=== PATIENT | male | born 1960 | race Caucasian/White ===

== ENCOUNTER 2016-06-20 11:04 | Inpatient (IN) | payer OTHER ==
[2016-06-20 11:56] VITALS: BMI 22.7
--- NOTE | 2016-06-20 13:42 | HP ---
Admission [facility] Chief Complaint: REHAB TX FOR ALCOHOL DEPENDENCE Allergies/Adverse Reactions: Allergies Allergy/AdvReac Type Severity Reaction Status Date / Time No Known Allergies Allergy Verified 07/14/15 17:11 History of Present Illness: 55 Y/O MALE WITH A HX OF ALCOHOL DEPENDENCE SEEKING REHAB TX. PT COMPLETED DETOX AT [facility] AND DISCHARGED TODAY TO COME INTO REHAB HERE. Exam Limitations: No Limitations - Ebola screening Have you traveled outside of the country in the last 21 days: No Have you had contact with anyone from an Ebola affected area: No Have you been sick,other than usual withdrawal symptoms: No Do you have a fever: No - Review of Systems Constitutional: Changes in sleep (ON REMERON) EENT: reports: Blurred Vision (WEARS GLASSES-NOT WITH PATIENT.), Nose Congestion (HX NOSE FX--ON NASAL SPRAY), Dental Problems (BILATERAL DENTURES ON PATIENT.) Respiratory: reports: Shortness of Breath (HX COPD--MDI), Wheezing Cardiac: reports: Lightheadedness, Palpitations (ONE STENT; S/P ND 2004) GI: reports: Diarrhea, Nausea, Poor Appetite, Poor Fluid Intake, Abdominal cramping : reports: No Symptoms Reported Musculoskeletal: reports: Back Pain (CHRONIC LBP--S/P BACK SX TWICE), Muscle Pain Integumentary: reports: No Symptoms Reported Neuro: reports: Headache (HX MIGRAINES) Endocrine: reports: No Symptoms Reported Hematology: reports: Blood Clots (BOTH LEGS, LAST EPISODE IN 2013-ON PLAVIX AND ASPIRIN.) Psychiatric: reports: Orientated x3, Anxious, Depressed (ON MEDS) Other Systems: Reviewed and Negative Patient History - Patient Medical History Hx Asthma: Yes Hx Chronic Obstructive Pulmonary Disease (COPD): Yes (MDI) Hx Cancer: No Hx Cardiac Disorders: Yes (ND X 1 IN 2004--ONE STENT.) Hx Congestive Heart Failure: No Hx Hypertension: Yes (ON MED) Hx Hypercholesterolemia: Yes Hx Pacemaker: No HX Cerebrovascular Accident: No Hx Seizures: Yes Hx Dementia: No Hx Diabetes: No Hx Gastrointestinal Disorders: Yes (GERD) Hx Liver Disease: No Hx Genitourinary Disorders: No Hx Sexually Transmitted Disorders: No Hx Renal Disease (ESRD): No Hx Thyroid Disease: No Hx Human Immunodeficiency Virus (HIV): No (NEGATIVE HX) Hx Hepatitis C: No Hx Depression: Yes Hx Suicide Attempt: Yes (10 YEARS AGO, CUT WRIST;DENIES CURRENT IDEATIONS) Hx Bipolar Disorder: No Hx Schizophrenia: Yes - Patient Surgical History Past Surgical History: Yes Hx Neurologic Surgery: No Hx Cataract Extraction: No Hx Cardiac Surgery: Yes (2004 stent) Hx Lung Surgery: No Hx Breast Surgery: No Hx Breast Biopsy: No Hx Abdominal Surgery: No Hx Appendectomy: No Hx Cholecystectomy: Yes (gallbladder removed 2014) Hx Genitourinary Surgery: No Hx Orthopedic Surgery: Yes (right upper arm fracture 2013) Anesthesia Reaction: No - PPD History Previous Implant?: Yes Documented Results: Negative w/o proof Implanted On Prior [facility] Admission?: Yes Date: 07/16/15 PPD to be Administered?: No - Reproductive History Patient is a Female of Child Bearing Age (11 -55 yrs old): No (MALE) - Smoking Cessation Smoking history: Current every day smoker Have you smoked in the past 12 months: Yes Aproximately how many cigarettes per day: 20 Hx Chewing Tobacco Use: No Initiated information on smoking cessation: Yes 'Breaking Loose' booklet given: 06/20/16 - Substance & Tx. History Hx Alcohol Use: Yes (BEER) Substance Use Type: Alcohol Hx Substance Use Treatment: Yes ([facility]) - Substances Abused Alcohol Route: Oral Frequency: Daily Amount used: 1 TO 1 1/2 CASES BEER Age of first use: 13 Date of Last Use: 06/14/16 Family Disease History - Family Disease History Family Disease History: Diabetes: Father (), CA: Mother ( throat ca), Sister (lung ca) Admission Physical Exam [facility] - Vital Signs Vital Signs: Vital Signs - 24 hr 06/20/16 11:48 Temperature 96.6 F L Pulse Rate 101 H Respiratory 20 Rate Blood Pressure 121/68 - Physical General Appearance: Yes: No Apparent Distress, Irritable, Anxious HEENTM: Yes: EOMI, Normocephalic, BAHMAN, Pharynx Normal, Nasal Congestion, Rhinorrhea, Other (SX SCAR ON NASAL BRIDGE. HX NASAL SX DUE TO FRACTURES.) Respiratory: Yes: Chest Non-Tender, Lungs Clear, Normal Breath Sounds, No Respiratory Distress Neck: Yes: Supple, Trachea in good position Breast: Yes: Breast Exam Deferred Cardiology: Yes: Regular Rhythm, Regular Rate, S1, S2, Tachycardia Abdominal: Yes: Normal Bowel Sounds, Non Tender, Flat, Soft Genitourinary: Yes: Other Back: Yes: Within Normal Limits Musculoskeletal: Yes: full range of Motion, Gait Steady Extremities: Yes: Normal Capillary Refill, Normal Range of Motion Neurological: Yes: fuel operator II-XII NML intact, Fully Oriented, Alert, Motor Strength 5/5 Integumentary: Yes: Dry, Warm Lymphatic: Yes: Within Normal Limits - Diagnostic (1) Nicotine dependence Current Visit: Yes Status: Acute Qualifiers: Nicotine product type: cigarettes Substance use status: in withdrawal Qualified Code(s): F17.213 - Nicotine dependence, cigarettes, with withdrawal (2) GERD (gastroesophageal reflux disease) Current Visit: Yes Status: Chronic Qualifiers: Esophagitis presence: without esophagitis Qualified Code(s): K21.9 - Gastro-esophageal reflux disease without esophagitis (3) Hypertension Current Visit: Yes Status: Chronic Qualifiers: Hypertension type: essential hypertension (4) Seizure Current Visit: Yes Status: Chronic (5) Alcohol dependence with uncomplicated withdrawal Current Visit: Yes Status: Chronic (6) Asthma Current Visit: Yes Status: Chronic Qualifiers: Asthma severity: mild intermittent Asthma complication type: uncomplicated Qualified Code(s): J45.20 - Mild intermittent asthma, uncomplicated (7) COPD (chronic obstructive pulmonary disease) Current Visit: Yes Status: Chronic Qualifiers: COPD type: emphysema Cleared for Admission [facility] - Detox or Rehab Claeared for Rehab Admission: Yes [facility] Breath Alcohol Content Breath Alcohol Content: 0 Urine Drug Screen - Results Drug Screen Negative: No Urine Drug Screen Results: BAR-Barbiturates, BZO-Benzodiazepines, TCA-Tricyclic Antidepress
[2016-06-20] MEDS ORDERED: guaiFENesin/D-METHORPHAN HB 10 ML UNIT-DOSE CUPS PO PRN (14:16)
[2016-06-20] MEDS ORDERED: LOPERAMIDE HCL 2 MG CAPSULE PO PRN (14:16)
[2016-06-20] MEDS ORDERED: MAGNESIUM CITRATE 300 ML BOTTLE PO PRN (14:16)
[2016-06-20] MEDS ORDERED: MAGNESIUM HYDROX 2400MG/30ML ORAL SUSPENSION 30 ML CUP PO PRN (14:16)
[2016-06-20] MEDS ORDERED: P-EPHED 60MG/TRIPROLIDI 2.5MG TABLET PO PRN (14:16)
[2016-06-20] MEDS ORDERED: MENTHOL/PHENOL 1 EACH UD MM PRN (14:16)
[2016-06-20] MEDS ORDERED: MAG HYDROX/AL HYDROX/SIMETH 30 ML UNIT-DOSE CUP PO PRN (14:16)
[2016-06-20] MEDS ORDERED: METHOCARBAMOL 750 MG TAB PO PRN (15:58)
[2016-06-20] MEDS ORDERED: LOSARTAN POTASSIUM PO SCH (16:00)
[2016-06-20 17:32] LABS: MCH 30.2 pg (25.7-33.7); MEAN CELL VOLUME 91.4 fl (80-96); MEAN PLT VOLUME 8.1 fl (7.5-11.1); PLATELET COUNT 206 K/MM3 (134-434); RDW 15.3 % (11.9-15.9); WHITE BLOOD COUNT 8.6 K/mm3 (4.0-10.0)
[2016-06-20 17:57] LABS: ALBUMIN 3.5 g/dl (3.4-5.0); ALK PHOS 79 U/L (45-117); ANION GAP 10 (8-16); BILIRUBIN,TOTAL 0.2 mg/dL (0.2-1.0); CALCIUM 8.8 mg/dL (8.5-10.1); CO2 25 mmol/L (21-32); COCKROFT - GAULT 93.78; CREATININE 0.9 mg/dL (0.7-1.3); GLUCOSE,RANDOM 88 mg/dL (74-106); SGOT/AST 19 U/L (15-37); SGPT/ALT 26 U/L (12-78); TOT PROT 7.1 g/dl (6.4-8.2)
[2016-06-20] MEDS: IBUPROFEN 400 MG TABLET (FP) PO PRN (18:07)
[2016-06-20] MEDS: DIGOXIN 0.125 MG TABLET (FP) PO SCH (19:46)
[2016-06-20] MEDS: CLOPIDOGREL BISULFATE 75 MG TABLET (FP) PO SCH (19:46)
[2016-06-20] MEDS: PANTOPRAZOLE 40 MG TABLET (FP) PO SCH (19:46)
[2016-06-20] MEDS: MIRTAZAPINE 15 MG TABLET (FP) PO SCH (21:29)
[2016-06-20] MEDS: THIAMINE HCL 100 MG TABLET (FP) PO SCH (21:29)
[2016-06-20] MEDS: QUEtiapine FUMARATE 50 MG TABLET PO SCH (21:29)
[2016-06-20] MEDS: DIVALPROEX SODIUM 500 MG TABLET E.C. PO SCH (21:30)
[2016-06-20] MEDS: ATORVASTATIN CALCIUM PO SCH (21:30)
[2016-06-20] MEDS: METOPROLOL TARTRATE 25 MG TABLET (FP) PO SCH (21:30)
[2016-06-20] MEDS: GABAPENTIN PO SCH (21:30)
[2016-06-20] MEDS ORDERED: PROPRANOLOL HCL PO SCH (22:00)
[2016-06-20 23:06] LABS: URINE APPEARANCE CLEAR; URINE BILIRUBIN NEGATIVE (NEGATIVE); URINE BLOOD NEGATIVE (NEGATIVE); URINE COLOR YELLOW; URINE GLUCOSE (UA) NEGATIVE (NEGATIVE); URINE KETONE NEGATIVE (NEGATIVE); URINE LEUK ESTERASE NEGATIVE (NEGATIVE); URINE NITRITE NEGATIVE (NEGATIVE); URINE PROTEIN NEGATIVE (NEGATIVE); URINE UROBILINOGEN NEGATIVE E.U./dl (0.2-1.0)
[2016-06-21] MEDS: GABAPENTIN PO SCH ×3 (06:31→21:33)
[2016-06-21] MEDS: QUEtiapine FUMARATE 50 MG TABLET PO SCH ×2 (10:00→21:33)
[2016-06-21] MEDS: CLOPIDOGREL BISULFATE 75 MG TABLET (FP) PO SCH (10:00)
[2016-06-21] MEDS: DIVALPROEX SODIUM 500 MG TABLET E.C. PO SCH ×2 (10:00→21:33)
[2016-06-21] MEDS: METOPROLOL TARTRATE 25 MG TABLET (FP) PO SCH ×2 (10:00→21:33)
[2016-06-21] MEDS: ASPIRIN COATED 81 MG TABLET.EC PO SCH (10:00)
[2016-06-21] MEDS: PRENATAL VITAMINS W/ FOLIC ACID TABLET (FP) PO SCH (10:00)
[2016-06-21] MEDS: PANTOPRAZOLE 40 MG TABLET (FP) PO SCH (10:00)
[2016-06-21] MEDS: LOSARTAN POTASSIUM 50 MG TABLET (FP) PO SCH (10:51)
[2016-06-21] MEDS: DIGOXIN 0.125 MG TABLET (FP) PO SCH (10:52)
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
[2016-06-21] MEDS: IBUPROFEN 400 MG TABLET (FP) PO PRN (15:36)
[2016-06-21] MEDS: ATORVASTATIN CALCIUM PO SCH (21:33)
[2016-06-21] MEDS: THIAMINE HCL 100 MG TABLET (FP) PO SCH (21:33)
[2016-06-21] MEDS: MIRTAZAPINE 15 MG TABLET (FP) PO SCH (21:33)
[2016-06-21] MEDS: METHOCARBAMOL 750 MG TABLET PO PRN (21:35)
[2016-06-21] MEDS: LIDOCAINE 5% TOPICAL PATCH TP SCH (22:16)
[2016-06-22] MEDS: GABAPENTIN PO SCH ×3 (06:20→21:20)
[2016-06-22] MEDS: LOSARTAN POTASSIUM 50 MG TABLET (FP) PO SCH (10:01)
[2016-06-22] MEDS: DIGOXIN 0.125 MG TABLET (FP) PO SCH (10:01)
[2016-06-22] MEDS: CLOPIDOGREL BISULFATE 75 MG TABLET (FP) PO SCH (10:02)
[2016-06-22] MEDS: ASPIRIN COATED 81 MG TABLET.EC PO SCH (10:02)
[2016-06-22] MEDS: PRENATAL VITAMINS W/ FOLIC ACID TABLET (FP) PO SCH (10:02)
[2016-06-22] MEDS: METOPROLOL TARTRATE 25 MG TABLET (FP) PO SCH ×2 (10:02→21:20)
[2016-06-22] MEDS: LIDOCAINE 5% TOPICAL PATCH TP SCH (10:03)
[2016-06-22] MEDS: PANTOPRAZOLE 40 MG TABLET (FP) PO SCH (10:03)
[2016-06-22] MEDS: DIVALPROEX SODIUM 500 MG TABLET E.C. PO SCH ×2 (10:03→21:20)
[2016-06-22] MEDS: QUEtiapine FUMARATE 50 MG TABLET PO SCH ×2 (10:03→21:20)
--- NOTE | 2016-06-22 11:49 | EKG ---
Test Reason : Blood Pressure : / mmHG Vent. Rate : 074 BPM Atrial Rate : 074 BPM P-R Int : 164 ms QRS Dur : 116 ms QT Int : 404 ms P-R-T Axes : 066 065 003 degrees QTc Int : 448 ms NORMAL SINUS RHYTHM NORMAL ECG NO PREVIOUS ECGS AVAILABLE Confirmed by GLENDY BULL MD ([id number]) on 06/22/2016 11:49:19 AM Referred By: Confirmed By:GLENDY BULL MD
[2016-06-22] MEDS: IBUPROFEN 400 MG TABLET (FP) PO PRN (16:12)
[2016-06-22] MEDS: MIRTAZAPINE 15 MG TABLET (FP) PO SCH (21:20)
[2016-06-22] MEDS: ATORVASTATIN CALCIUM PO SCH (21:20)
[2016-06-22] MEDS: THIAMINE HCL 100 MG TABLET (FP) PO SCH (21:20)
[2016-06-22] MEDS: SUMAtriptan SUCCINATE 25 MG TABLET PO PRN (21:22)
[2016-06-22] MEDS: METHOCARBAMOL 750 MG TABLET PO PRN (21:24)
[2016-06-22] MEDS: diphenhydrAMINE HCL 50 MG CAPSULE PO PRN (22:02)
[2016-06-23] MEDS: GABAPENTIN PO SCH ×3 (06:09→21:31)
[2016-06-23] MEDS: DIVALPROEX SODIUM 500 MG TABLET E.C. PO SCH ×2 (09:51→21:31)
[2016-06-23] MEDS: PRENATAL VITAMINS W/ FOLIC ACID TABLET (FP) PO SCH (09:52)
[2016-06-23] MEDS: PANTOPRAZOLE 40 MG TABLET (FP) PO SCH (09:52)
[2016-06-23] MEDS: CLOPIDOGREL BISULFATE 75 MG TABLET (FP) PO SCH (09:52)
[2016-06-23] MEDS: QUEtiapine FUMARATE 50 MG TABLET PO SCH ×2 (09:52→21:30)
[2016-06-23] MEDS: LOSARTAN POTASSIUM 50 MG TABLET (FP) PO SCH (09:52)
[2016-06-23] MEDS: METOPROLOL TARTRATE 25 MG TABLET (FP) PO SCH ×2 (09:52→21:31)
[2016-06-23] MEDS: DIGOXIN 0.125 MG TABLET (FP) PO SCH (09:53)
[2016-06-23] MEDS: ASPIRIN COATED 81 MG TABLET.EC PO SCH (10:19)
[2016-06-23] MEDS: LIDOCAINE 5% TOPICAL PATCH TP SCH (10:20)
[2016-06-23] MEDS: METHOCARBAMOL 750 MG TABLET PO PRN ×2 (12:34→21:32)
[2016-06-23] MEDS: SUMAtriptan SUCCINATE 25 MG TABLET PO PRN ×2 (12:37→21:31)
[2016-06-23] MEDS ORDERED: METHOCARBAMOL 750 MG TABLET PO SCH (14:00)
[2016-06-23] MEDS: THIAMINE HCL 100 MG TABLET (FP) PO SCH (21:30)
[2016-06-23] MEDS: MIRTAZAPINE 15 MG TABLET (FP) PO SCH (21:30)
[2016-06-23] MEDS: ATORVASTATIN CALCIUM PO SCH (21:32)
[2016-06-24] MEDS: GABAPENTIN PO SCH ×3 (06:41→21:32)
[2016-06-24] MEDS: METHOCARBAMOL 750 MG TABLET PO PRN ×2 (08:38→21:33)
[2016-06-24] MEDS: CLOPIDOGREL BISULFATE 75 MG TABLET (FP) PO SCH (09:51)
[2016-06-24] MEDS: QUEtiapine FUMARATE 50 MG TABLET PO SCH ×2 (09:51→21:32)
[2016-06-24] MEDS: DIGOXIN 0.125 MG TABLET (FP) PO SCH (09:51)
[2016-06-24] MEDS: METOPROLOL TARTRATE 25 MG TABLET (FP) PO SCH ×2 (09:52→21:32)
[2016-06-24] MEDS: LOSARTAN POTASSIUM 50 MG TABLET (FP) PO SCH (09:52)
[2016-06-24] MEDS: PRENATAL VITAMINS W/ FOLIC ACID TABLET (FP) PO SCH (09:52)
[2016-06-24] MEDS: DIVALPROEX SODIUM 500 MG TABLET E.C. PO SCH ×2 (09:52→21:32)
[2016-06-24] MEDS: LIDOCAINE 5% TOPICAL PATCH TP SCH (09:52)
[2016-06-24] MEDS: PANTOPRAZOLE 40 MG TABLET (FP) PO SCH (09:52)
[2016-06-24] MEDS: ASPIRIN COATED 81 MG TABLET.EC PO SCH (09:52)
[2016-06-24] MEDS: ACETAMINOPHEN 325 MG TABLET (FP) PO PRN (14:32)
[2016-06-24] MEDS: THIAMINE HCL 100 MG TABLET (FP) PO SCH (21:32)
[2016-06-24] MEDS: MIRTAZAPINE 15 MG TABLET (FP) PO SCH (21:32)
[2016-06-24] MEDS: ATORVASTATIN CALCIUM PO SCH (21:32)
[2016-06-24] MEDS: diphenhydrAMINE HCL 50 MG CAPSULE PO PRN (21:33)
[2016-06-25] MEDS: GABAPENTIN PO SCH ×2 (06:44→14:19)
[2016-06-25] MEDS: METHOCARBAMOL 750 MG TABLET PO PRN ×2 (06:46→14:19)
[2016-06-25] MEDS: DIGOXIN 0.125 MG TABLET (FP) PO SCH (09:55)
[2016-06-25] MEDS: PRENATAL VITAMINS W/ FOLIC ACID TABLET (FP) PO SCH (09:56)
[2016-06-25] MEDS: ASPIRIN COATED 81 MG TABLET.EC PO SCH (09:56)
[2016-06-25] MEDS: LOSARTAN POTASSIUM 50 MG TABLET (FP) PO SCH (09:56)
[2016-06-25] MEDS: CLOPIDOGREL BISULFATE 75 MG TABLET (FP) PO SCH (09:56)
[2016-06-25] MEDS: PANTOPRAZOLE 40 MG TABLET (FP) PO SCH (09:56)
[2016-06-25] MEDS: QUEtiapine FUMARATE 50 MG TABLET PO SCH ×2 (09:57→21:35)
[2016-06-25] MEDS: LIDOCAINE 5% TOPICAL PATCH TP SCH (09:57)
[2016-06-25] MEDS: DIVALPROEX SODIUM 500 MG TABLET E.C. PO SCH ×2 (09:57→21:34)
[2016-06-25] MEDS: METOPROLOL TARTRATE 25 MG TABLET (FP) PO SCH ×2 (09:58→21:35)
[2016-06-25] MEDS: IBUPROFEN 400 MG TABLET (FP) PO PRN (09:59)
[2016-06-25] MEDS: SUMAtriptan SUCCINATE 25 MG TABLET PO PRN (14:17)
[2016-06-25] MEDS: ATORVASTATIN CALCIUM PO SCH (21:34)
[2016-06-25] MEDS: GABAPENTIN 300 MG CAPSULE (FP) PO SCH (21:35)
[2016-06-25] MEDS: MIRTAZAPINE 15 MG TABLET (FP) PO SCH (21:35)
[2016-06-25] MEDS: diphenhydrAMINE HCL 50 MG CAPSULE PO PRN (21:36)
[2016-06-25] MEDS: THIAMINE HCL 100 MG TABLET (FP) PO SCH (21:37)
[2016-06-26] MEDS: METHOCARBAMOL 750 MG TABLET PO PRN ×3 (06:04→21:26)
[2016-06-26] MEDS: GABAPENTIN 300 MG CAPSULE (FP) PO SCH ×3 (06:05→21:23)
[2016-06-26] MEDS: CLOPIDOGREL BISULFATE 75 MG TABLET (FP) PO SCH (10:19)
[2016-06-26] MEDS: QUEtiapine FUMARATE 50 MG TABLET PO SCH ×2 (10:19→21:24)
[2016-06-26] MEDS: PANTOPRAZOLE 40 MG TABLET (FP) PO SCH (10:19)
[2016-06-26] MEDS: PRENATAL VITAMINS W/ FOLIC ACID TABLET (FP) PO SCH (10:19)
[2016-06-26] MEDS: ASPIRIN COATED 81 MG TABLET.EC PO SCH (10:19)
[2016-06-26] MEDS: DIVALPROEX SODIUM 500 MG TABLET E.C. PO SCH ×2 (10:19→21:23)
[2016-06-26] MEDS: LOSARTAN POTASSIUM 50 MG TABLET (FP) PO SCH (10:19)
[2016-06-26] MEDS: LIDOCAINE 5% TOPICAL PATCH TP SCH (10:20)
[2016-06-26] MEDS: DIGOXIN 0.125 MG TABLET (FP) PO SCH (10:20)
[2016-06-26] MEDS: IBUPROFEN 400 MG TABLET (FP) PO PRN (10:23)
[2016-06-26] MEDS: METOPROLOL TARTRATE 25 MG TABLET (FP) PO SCH ×2 (11:16→21:24)
[2016-06-26] MEDS: ACETAMINOPHEN 325 MG TABLET (FP) PO PRN (20:33)
[2016-06-26] MEDS: MIRTAZAPINE 15 MG TABLET (FP) PO SCH (21:23)
[2016-06-26] MEDS: THIAMINE HCL 100 MG TABLET (FP) PO SCH (21:24)
[2016-06-26] MEDS: ATORVASTATIN CALCIUM PO SCH (21:25)
[2016-06-26] MEDS: SUMAtriptan SUCCINATE 25 MG TABLET PO PRN (21:26)
[2016-06-26] MEDS: diphenhydrAMINE HCL 50 MG CAPSULE PO PRN (21:27)
[2016-06-27] MEDS: METHOCARBAMOL 750 MG TABLET PO PRN ×3 (06:08→21:51)
[2016-06-27] MEDS: GABAPENTIN 300 MG CAPSULE (FP) PO SCH ×3 (06:08→21:49)
[2016-06-27] MEDS: PANTOPRAZOLE 40 MG TABLET (FP) PO SCH (10:06)
[2016-06-27] MEDS: PRENATAL VITAMINS W/ FOLIC ACID TABLET (FP) PO SCH (10:07)
[2016-06-27] MEDS: DIVALPROEX SODIUM 500 MG TABLET E.C. PO SCH ×2 (10:07→21:48)
[2016-06-27] MEDS: DIGOXIN 0.125 MG TABLET (FP) PO SCH (10:07)
[2016-06-27] MEDS: LOSARTAN POTASSIUM 50 MG TABLET (FP) PO SCH (10:07)
[2016-06-27] MEDS: ASPIRIN COATED 81 MG TABLET.EC PO SCH (10:07)
[2016-06-27] MEDS: CLOPIDOGREL BISULFATE 75 MG TABLET (FP) PO SCH (10:07)
[2016-06-27] MEDS: METOPROLOL TARTRATE 25 MG TABLET (FP) PO SCH ×2 (10:07→21:50)
[2016-06-27] MEDS: LIDOCAINE 5% TOPICAL PATCH TP SCH (10:08)
[2016-06-27] MEDS: QUEtiapine FUMARATE 50 MG TABLET PO SCH ×2 (10:08→21:49)
[2016-06-27] MEDS: SUMAtriptan SUCCINATE 25 MG TABLET PO PRN (21:48)
[2016-06-27] MEDS: ATORVASTATIN CALCIUM PO SCH (21:49)
[2016-06-27] MEDS: MIRTAZAPINE 15 MG TABLET (FP) PO SCH (21:50)
[2016-06-27] MEDS: THIAMINE HCL 100 MG TABLET (FP) PO SCH (21:50)
[2016-06-27] MEDS: diphenhydrAMINE HCL 50 MG CAPSULE PO PRN (21:52)
[2016-06-28] MEDS: GABAPENTIN 300 MG CAPSULE (FP) PO SCH ×3 (06:20→21:09)
[2016-06-28] MEDS: METHOCARBAMOL 750 MG TABLET PO PRN ×3 (06:21→21:09)
[2016-06-28] MEDS: CLOPIDOGREL BISULFATE 75 MG TABLET (FP) PO SCH (10:11)
[2016-06-28] MEDS: DIGOXIN 0.125 MG TABLET (FP) PO SCH (10:11)
[2016-06-28] MEDS: PANTOPRAZOLE 40 MG TABLET (FP) PO SCH (10:11)
[2016-06-28] MEDS: QUEtiapine FUMARATE 50 MG TABLET PO SCH ×2 (10:11→21:09)
[2016-06-28] MEDS: ASPIRIN COATED 81 MG TABLET.EC PO SCH (10:11)
[2016-06-28] MEDS: PRENATAL VITAMINS W/ FOLIC ACID TABLET (FP) PO SCH (10:12)
[2016-06-28] MEDS: LIDOCAINE 5% TOPICAL PATCH TP SCH (10:12)
[2016-06-28] MEDS: DIVALPROEX SODIUM 500 MG TABLET E.C. PO SCH ×2 (10:12→21:09)
[2016-06-28] MEDS: LOSARTAN POTASSIUM 50 MG TABLET (FP) PO SCH (10:12)
[2016-06-28] MEDS: METOPROLOL TARTRATE 25 MG TABLET (FP) PO SCH ×2 (10:12→21:09)
[2016-06-28] MEDS: IBUPROFEN 400 MG TABLET (FP) PO PRN (10:14)
[2016-06-28] MEDS: SUMAtriptan SUCCINATE 25 MG TABLET PO PRN ×2 (14:16→21:09)
[2016-06-28] MEDS: COLLOIDAL OATMEAL 1 BAR EACH TP PRN (17:46)
[2016-06-28] MEDS: ATORVASTATIN CALCIUM PO SCH (21:09)
[2016-06-28] MEDS: THIAMINE HCL 100 MG TABLET (FP) PO SCH (21:09)
[2016-06-28] MEDS: MIRTAZAPINE 15 MG TABLET (FP) PO SCH (21:09)
[2016-06-29] MEDS: GABAPENTIN 300 MG CAPSULE (FP) PO SCH ×3 (06:03→21:10)
[2016-06-29] MEDS: METHOCARBAMOL 750 MG TABLET PO PRN ×3 (06:03→21:13)
[2016-06-29] MEDS: QUEtiapine FUMARATE 50 MG TABLET PO SCH ×2 (09:52→21:10)
[2016-06-29] MEDS: ASPIRIN COATED 81 MG TABLET.EC PO SCH (09:53)
[2016-06-29] MEDS: DIVALPROEX SODIUM 500 MG TABLET E.C. PO SCH ×2 (09:53→21:09)
[2016-06-29] MEDS: CLOPIDOGREL BISULFATE 75 MG TABLET (FP) PO SCH (09:53)
[2016-06-29] MEDS: METOPROLOL TARTRATE 25 MG TABLET (FP) PO SCH ×2 (09:53→21:09)
[2016-06-29] MEDS: DIGOXIN 0.125 MG TABLET (FP) PO SCH (09:53)
[2016-06-29] MEDS: LOSARTAN POTASSIUM 50 MG TABLET (FP) PO SCH (09:54)
[2016-06-29] MEDS: LIDOCAINE 5% TOPICAL PATCH TP SCH (09:54)
[2016-06-29] MEDS: PANTOPRAZOLE 40 MG TABLET (FP) PO SCH (09:54)
[2016-06-29] MEDS: PRENATAL VITAMINS W/ FOLIC ACID TABLET (FP) PO SCH (09:54)
[2016-06-29] MEDS: ACETAMINOPHEN 325 MG TABLET (FP) PO PRN (09:56)
[2016-06-29] MEDS: SUMAtriptan SUCCINATE 25 MG TABLET PO PRN ×2 (14:07→21:12)
[2016-06-29] MEDS: SODIUM CHLORIDE NASAL SPRAY 44 ML BOTTLE NS PRN (21:08)
[2016-06-29] MEDS: ATORVASTATIN CALCIUM PO SCH (21:09)
[2016-06-29] MEDS: MIRTAZAPINE 15 MG TABLET (FP) PO SCH (21:10)
[2016-06-29] MEDS: THIAMINE HCL 100 MG TABLET (FP) PO SCH (21:11)
[2016-06-29] MEDS: diphenhydrAMINE HCL 50 MG CAPSULE PO PRN (21:12)
[2016-06-30] MEDS: GABAPENTIN 300 MG CAPSULE (FP) PO SCH ×3 (06:17→21:11)
[2016-06-30] MEDS: METHOCARBAMOL 750 MG TABLET PO PRN ×3 (06:17→21:12)
[2016-06-30] MEDS: DIVALPROEX SODIUM 500 MG TABLET E.C. PO SCH ×2 (09:46→21:10)
[2016-06-30] MEDS: CLOPIDOGREL BISULFATE 75 MG TABLET (FP) PO SCH (09:46)
[2016-06-30] MEDS: DIGOXIN 0.125 MG TABLET (FP) PO SCH (09:46)
[2016-06-30] MEDS: ASPIRIN COATED 81 MG TABLET.EC PO SCH (09:46)
[2016-06-30] MEDS: LOSARTAN POTASSIUM 50 MG TABLET (FP) PO SCH (09:46)
[2016-06-30] MEDS: QUEtiapine FUMARATE 50 MG TABLET PO SCH ×2 (09:47→21:11)
[2016-06-30] MEDS: PRENATAL VITAMINS W/ FOLIC ACID TABLET (FP) PO SCH (09:47)
[2016-06-30] MEDS: METOPROLOL TARTRATE 25 MG TABLET (FP) PO SCH ×2 (09:47→21:11)
[2016-06-30] MEDS: LIDOCAINE 5% TOPICAL PATCH TP SCH (09:47)
[2016-06-30] MEDS: ACETAMINOPHEN 325 MG TABLET (FP) PO PRN (09:49)
[2016-06-30] MEDS: PANTOPRAZOLE 40 MG TABLET (FP) PO SCH (09:49)
[2016-06-30] MEDS: SUMAtriptan SUCCINATE 25 MG TABLET PO PRN ×2 (13:11→21:11)
[2016-06-30] MEDS: MIRTAZAPINE 15 MG TABLET (FP) PO SCH (21:11)
[2016-06-30] MEDS: ATORVASTATIN CALCIUM PO SCH (21:11)
[2016-06-30] MEDS: SODIUM CHLORIDE NASAL SPRAY 44 ML BOTTLE NS PRN (21:11)
[2016-06-30] MEDS: THIAMINE HCL 100 MG TABLET (FP) PO SCH (21:12)
[2016-06-30] MEDS: ALBUTEROL SO4 6.7 GM HFA INHALER IH PRN (21:13)
[2016-07-01] MEDS: GABAPENTIN 300 MG CAPSULE (FP) PO SCH ×3 (06:09→21:16)
[2016-07-01] MEDS: METHOCARBAMOL 750 MG TABLET PO PRN ×3 (06:10→21:21)
[2016-07-01] MEDS: SODIUM CHLORIDE NASAL SPRAY 44 ML BOTTLE NS PRN ×2 (06:11→21:18)
[2016-07-01] MEDS: LIDOCAINE 5% TOPICAL PATCH TP SCH (09:44)
[2016-07-01] MEDS: ACETAMINOPHEN 325 MG TABLET (FP) PO PRN (09:46)
[2016-07-01] MEDS: CLOPIDOGREL BISULFATE 75 MG TABLET (FP) PO SCH (09:48)
[2016-07-01] MEDS: hydrOXYzine PAMOATE 25 MG CAPSULE (FP) PO PRN (09:48)
[2016-07-01] MEDS: LOSARTAN POTASSIUM 50 MG TABLET (FP) PO SCH (09:48)
[2016-07-01] MEDS: ASPIRIN COATED 81 MG TABLET.EC PO SCH (09:48)
[2016-07-01] MEDS: DIVALPROEX SODIUM 500 MG TABLET E.C. PO SCH ×2 (09:48→21:16)
[2016-07-01] MEDS: PRENATAL VITAMINS W/ FOLIC ACID TABLET (FP) PO SCH (09:48)
[2016-07-01] MEDS: PANTOPRAZOLE 40 MG TABLET (FP) PO SCH (09:49)
[2016-07-01] MEDS: METOPROLOL TARTRATE 25 MG TABLET (FP) PO SCH ×2 (09:49→21:16)
[2016-07-01] MEDS: DIGOXIN 0.125 MG TABLET (FP) PO SCH (10:26)
[2016-07-01] MEDS: QUEtiapine FUMARATE 50 MG TABLET PO SCH ×2 (10:27→21:15)
[2016-07-01] MEDS: CEPHALEXIN MONOHYDRATE 500 MG CAPSULE (UD) PO SCH ×2 (12:04→17:52)
[2016-07-01] MEDS: SUMAtriptan SUCCINATE 25 MG TABLET PO PRN ×2 (14:05→21:21)
--- NOTE | 2016-07-01 17:06 | PN ---
S Progress Note Note: Patient is referred for pain to the left hip area. On exam, there is an area of redness which is tender and firm to touch. There is a scar right above the area of redness which is also tender to touch. As per pt, the scar from a previous surgery. He denies any recent injury. He denies fever or chills A/P left hip cellulitis Keflex 500mg p.o every 6hrs for 7 days.
[2016-07-01] MEDS: ATORVASTATIN CALCIUM PO SCH (21:16)
[2016-07-01] MEDS: MIRTAZAPINE 15 MG TABLET (FP) PO SCH (21:16)
[2016-07-01] MEDS: THIAMINE HCL 100 MG TABLET (FP) PO SCH (21:17)
[2016-07-01] MEDS: IBUPROFEN 400 MG TABLET (FP) PO PRN (21:25)
[2016-07-02] MEDS: CEPHALEXIN MONOHYDRATE 500 MG CAPSULE (UD) PO SCH ×5 (00:12→23:38)
[2016-07-02] MEDS: GABAPENTIN 300 MG CAPSULE (FP) PO SCH ×3 (06:18→21:13)
[2016-07-02] MEDS: METHOCARBAMOL 750 MG TABLET PO PRN ×3 (06:19→21:17)
[2016-07-02] MEDS: LOSARTAN POTASSIUM 50 MG TABLET (FP) PO SCH (09:52)
[2016-07-02] MEDS: DIGOXIN 0.125 MG TABLET (FP) PO SCH (09:52)
[2016-07-02] MEDS: DIVALPROEX SODIUM 500 MG TABLET E.C. PO SCH ×2 (09:52→21:13)
[2016-07-02] MEDS: QUEtiapine FUMARATE 50 MG TABLET PO SCH ×2 (09:53→21:12)
[2016-07-02] MEDS: CLOPIDOGREL BISULFATE 75 MG TABLET (FP) PO SCH (09:53)
[2016-07-02] MEDS: PRENATAL VITAMINS W/ FOLIC ACID TABLET (FP) PO SCH (09:53)
[2016-07-02] MEDS: SODIUM CHLORIDE NASAL SPRAY 44 ML BOTTLE NS PRN ×2 (09:53→21:13)
[2016-07-02] MEDS: hydrOXYzine PAMOATE 25 MG CAPSULE (FP) PO PRN (09:53)
[2016-07-02] MEDS: PANTOPRAZOLE 40 MG TABLET (FP) PO SCH (09:54)
[2016-07-02] MEDS: ACETAMINOPHEN 325 MG TABLET (FP) PO PRN ×2 (09:54→21:14)
[2016-07-02] MEDS: ALBUTEROL SO4 6.7 GM HFA INHALER IH PRN ×2 (09:54→21:14)
[2016-07-02] MEDS: ASPIRIN COATED 81 MG TABLET.EC PO SCH (09:54)
[2016-07-02] MEDS: LIDOCAINE 5% TOPICAL PATCH TP SCH (09:55)
[2016-07-02] MEDS: METOPROLOL TARTRATE 25 MG TABLET (FP) PO SCH ×2 (09:56→21:18)
[2016-07-02] MEDS: SUMAtriptan SUCCINATE 25 MG TABLET PO PRN (17:32)
[2016-07-02] MEDS: ATORVASTATIN CALCIUM PO SCH (21:12)
[2016-07-02] MEDS: THIAMINE HCL 100 MG TABLET (FP) PO SCH (21:12)
[2016-07-02] MEDS: MIRTAZAPINE 15 MG TABLET (FP) PO SCH (21:12)
[2016-07-02] MEDS: diphenhydrAMINE HCL 50 MG CAPSULE PO PRN (21:17)
[2016-07-03] MEDS: CEPHALEXIN MONOHYDRATE 500 MG CAPSULE (UD) PO SCH ×4 (06:15→23:10)
[2016-07-03] MEDS: GABAPENTIN 300 MG CAPSULE (FP) PO SCH ×3 (06:15→21:18)
[2016-07-03] MEDS: SODIUM CHLORIDE NASAL SPRAY 44 ML BOTTLE NS PRN ×2 (06:17→21:24)
[2016-07-03] MEDS: ACETAMINOPHEN 325 MG TABLET (FP) PO PRN (06:18)
[2016-07-03] MEDS: ALBUTEROL SO4 6.7 GM HFA INHALER IH PRN ×2 (06:18→21:24)
[2016-07-03] MEDS ORDERED: QUEtiapine FUMARATE 25 MG TABLET (FP) ONE (08:45)
[2016-07-03] MEDS: DIGOXIN 0.125 MG TABLET (FP) PO SCH (09:42)
[2016-07-03] MEDS: PRENATAL VITAMINS W/ FOLIC ACID TABLET (FP) PO SCH (09:42)
[2016-07-03] MEDS: DIVALPROEX SODIUM 500 MG TABLET E.C. PO SCH ×2 (09:43→21:18)
[2016-07-03] MEDS: ASPIRIN COATED 81 MG TABLET.EC PO SCH (09:43)
[2016-07-03] MEDS: LOSARTAN POTASSIUM 50 MG TABLET (FP) PO SCH (09:43)
[2016-07-03] MEDS: METOPROLOL TARTRATE 25 MG TABLET (FP) PO SCH ×2 (09:43→21:18)
[2016-07-03] MEDS: PANTOPRAZOLE 40 MG TABLET (FP) PO SCH (09:43)
[2016-07-03] MEDS: LIDOCAINE 5% TOPICAL PATCH TP SCH (09:44)
[2016-07-03] MEDS: QUEtiapine FUMARATE 50 MG TABLET PO SCH ×2 (09:44→21:18)
[2016-07-03] MEDS: METHOCARBAMOL 750 MG TABLET PO PRN ×2 (09:45→22:15)
[2016-07-03] MEDS: CLOPIDOGREL BISULFATE 75 MG TABLET (FP) PO SCH (10:05)
[2016-07-03] MEDS: IBUPROFEN 400 MG TABLET (FP) PO PRN (14:08)
[2016-07-03] MEDS: ATORVASTATIN CALCIUM PO SCH (21:17)
[2016-07-03] MEDS: THIAMINE HCL 100 MG TABLET (FP) PO SCH (21:18)
[2016-07-03] MEDS: MIRTAZAPINE 15 MG TABLET (FP) PO SCH (21:19)
[2016-07-03] MEDS: SUMAtriptan SUCCINATE 25 MG TABLET PO PRN (21:19)
[2016-07-03] MEDS: diphenhydrAMINE HCL 50 MG CAPSULE PO PRN (21:23)
[2016-07-04] MEDS: SODIUM CHLORIDE NASAL SPRAY 44 ML BOTTLE NS PRN (05:50)
[2016-07-04] MEDS: ALBUTEROL SO4 6.7 GM HFA INHALER IH PRN (05:50)
[2016-07-04] MEDS: CEPHALEXIN MONOHYDRATE 500 MG CAPSULE (UD) PO SCH (05:51)
[2016-07-04] MEDS: GABAPENTIN 300 MG CAPSULE (FP) PO SCH (05:51)
[2016-07-04] MEDS: COLLOIDAL OATMEAL 1 BAR EACH TP PRN (05:52)
[2016-07-04] MEDS: SUMAtriptan SUCCINATE 25 MG TABLET PO PRN (06:18)
[2016-07-04 06:38] VITALS: BP 136/79; TEMP 98
[2016-07-04] MEDS: ASPIRIN COATED 81 MG TABLET.EC PO SCH (09:34)
[2016-07-04] MEDS: DIGOXIN 0.125 MG TABLET (FP) PO SCH (09:34)
[2016-07-04] MEDS: DIVALPROEX SODIUM 500 MG TABLET E.C. PO SCH (09:34)
[2016-07-04] MEDS: PRENATAL VITAMINS W/ FOLIC ACID TABLET (FP) PO SCH (09:35)
[2016-07-04] MEDS: METOPROLOL TARTRATE 25 MG TABLET (FP) PO SCH (09:35)
[2016-07-04] MEDS: QUEtiapine FUMARATE 50 MG TABLET PO SCH (09:35)
[2016-07-04] MEDS: LIDOCAINE 5% TOPICAL PATCH TP SCH (09:35)
[2016-07-04] MEDS: PANTOPRAZOLE 40 MG TABLET (FP) PO SCH (09:35)
[2016-07-04] MEDS: CLOPIDOGREL BISULFATE 75 MG TABLET (FP) PO SCH (09:35)
[2016-07-04] MEDS: LOSARTAN POTASSIUM 50 MG TABLET (FP) PO SCH (09:35)
[2016-07-04] MEDS: METHOCARBAMOL 750 MG TABLET PO PRN (09:36)
[2016-07-04 09:38] VITALS: PULSE 88
--- NOTE | 2016-07-04 09:42 | PN ---
Psychiatric Progress Note Vital Signs: Vital Signs Period Temp Pulse Resp BP Sys/Orta Pulse Ox Last 24 Hr 98.0 F 88-98 16-18 134-136/65-79 Date of Session: 07/04/16 Chief Complaint:: Discharge Note HPI: Patient addressing Alcohol Dependence comorbid with Nicotine Dependence and Schizoaffective Disorder ROS: Asthma, HTN, Seizure Disorder and Neuropathis arthropathy were medically managed Current Medications: Active Medications Generic Name Dose Route Start Last Admin Trade Name Freq PRN Reason Stop Dose Admin Acetaminophen 650 mg 06/20/16 14:16 07/03/16 06:18 Tylenol - PO 650 mg Q4H PRN Administration PAIN Al Hydroxide/Mg Hydroxide 30 ml 06/20/16 14:16 Mylanta Oral Suspension - PO Q6H PRN DYSPEPSIA Albuterol Sulfate 2 puff 06/20/16 16:00 07/04/16 05:50 Ventolin Hfa Inhaler - IH 2 puff Q4H PRN Administration SHORTNESS OF BREATH Aspirin 81 mg 06/21/16 10:00 07/03/16 09:43 Ecotrin - PO 81 mg DAILY SAVANA Administration Cephalexin HCl 500 mg 07/01/16 12:00 07/04/16 05:51 Keflex - PO 500 mg Q6HPO SAVANA Administration Clopidogrel Bisulfate 75 mg 06/20/16 19:15 07/03/16 10:05 Plavix - PO 75 mg DAILY SAVANA Administration Colloidal Oatmeal 1 applic 06/28/16 13:34 07/04/16 05:52 Aveeno Soap - TP 1 applic DAILY PRN Administration HYGEINE Digoxin 0.125 mg 06/20/16 16:00 07/03/16 09:42 Lanoxin - PO 0.125 mg DAILY SAVANA Administration Diphenhydramine HCl 50 mg 06/20/16 14:16 07/03/16 21:23 Benadryl - PO 50 mg HSMR1 PRN Administration INSOMNIA Divalproex Sodium 1,000 mg 06/20/16 22:00 07/03/16 21:18 Depakote - PO 1,000 mg BID SAVANA Administration Eucalyptus/Menthol/Phenol/Sorbitol 1 each 06/20/16 14:16 Cepastat Lozenge - MM Q4H PRN SORE THROAT Gabapentin 600 mg 06/25/16 22:00 07/04/16 05:51 Neurontin - PO 600 mg TID SAVANA Administration Guaifenesin 10 ml 06/20/16 14:16 Robitussin Dm - PO Q6H PRN COUGH Hydroxyzine Pamoate 25 mg 06/20/16 14:16 07/02/16 09:53 Vistaril - PO 25 mg Q4H PRN Administration AGITATION Ibuprofen 400 mg 06/20/16 14:16 07/03/16 14:08 Motrin - PO 400 mg Q6H PRN Administration SEVERE PAIN Lidocaine 1 patch 06/21/16 22:00 07/03/16 09:44 Lidoderm Patch - TP 1 patch DAILY SAVANA Administration Loperamide HCl 4 mg 06/20/16 14:16 Imodium - PO Q6H PRN DIARRHEA Losartan Potassium 50 mg 06/20/16 18:48 07/03/16 09:43 Cozaar - PO 50 mg DAILY SAVANA Administration Magnesium Citrate 300 ml 06/20/16 14:16 Citroma - PO Q48H PRN CONSTIPATION Magnesium Hydroxide 30 ml 06/20/16 14:16 06/24/16 22:14 Milk Of Magnesia - PO 30 ml DAILY PRN Administration CONSTIPATION Methocarbamol 750 mg 06/23/16 10:39 07/03/16 22:15 Robaxin - PO 750 mg TID PRN Administration MUSCLE SPASMS Metoprolol Tartrate 25 mg 06/20/16 22:00 07/03/16 21:18 Lopressor - PO 25 mg BID SAVANA Administration Mirtazapine 15 mg 06/20/16 22:00 07/03/16 21:19 Remeron - PO 15 mg HS SAVANA Administration Non-Formulary Medication 40 mg 06/20/16 22:00 07/03/16 21:17 Atorvastatin Calcium [Atorvastatin Calcium] PO 40 mg HS SAVANA Administration Pantoprazole Sodium 40 mg 06/20/16 19:15 07/03/16 09:43 Protonix - PO 40 mg DAILY SAVANA Administration Multivit/Folic Acid/Iron 1 tab 06/21/16 10:00 07/03/16 09:42 Vitamins (Sjr) - PO 1 tab DAILY SAVANA Administration Pseudoephedrine/Triprolidine 1 combo 06/20/16 14:16 Actifed - PO TID PRN NASAL CONGESTION Quetiapine Fumarate 100 mg 06/20/16 22:00 07/03/16 21:18 Seroquel - PO 100 mg BID SAVANA Administration Sodium Chloride 2 spray 06/29/16 13:32 07/04/16 05:50 Valinda Wilson Nasal Wilson - NS 2 sprays BID PRN Administration NASAL CONGESTION Sumatriptan Succinate 25 mg 06/22/16 12:39 07/04/16 06:18 Imitrex - PO 25 mg ONCE PRN Administration HEADACHE Thiamine HCl 100 mg 06/20/16 22:00 07/03/16 21:18 Vitamin B1 - PO 100 mg HS SAVANA Administration Current Side Effect: No Lab tests ordered: Yes Lab tests reviewed: Yes Provider note:: Patient has completed this program today. He has met his treatment goals and jud continue to address his issues in outpatient treatment at [facility] at [address] [place] [address]. He verbalized understanding the negative consequences of his addiction and from his participation in this program,he recognize the need to reach out, speak up and love himself. He responded well to Seroquel 100 mg po BID and Remeron 15 mg po HS, Scripts for 30 days supply of these medications are electronically transmitted to [facility] at [address] [place] [address]. He is stable for discharge today. Total face to face time:: 35 Mental Status Exam - Mental Status Exam Alert and Oriented to: Time, Place, Person Cognitive Function: Fair Mood: Hopeful, Euthymic Patient Behavior: Cooperative Speech Pattern: Clear Voice Loudness: Normal Thought Process: Intact Thought Disorder: Not Present Hallucinations: Denies Suicidal Ideation: Denies Homicidal Ideation: Denies Insight/Judgement: Fair Sleep: Fair Appetite: Good Muscle strength/Tone: Normal Gait/Station: Normal Psychiatric Treatment Plan - Problem List (1) Alcohol dependence Current Visit: Yes (2) Nicotine dependence Current Visit: Yes Qualifiers: Nicotine product type: cigarettes Substance use status: in withdrawal Qualified Code(s): F17.213 - Nicotine dependence, cigarettes, with withdrawal (3) Schizoaffective disorder, bipolar type Current Visit: No (4) Asthma Current Visit: Yes Qualifiers: Asthma severity: mild intermittent Asthma complication type: uncomplicated Qualified Code(s): J45.20 - Mild intermittent asthma, uncomplicated (5) COPD (chronic obstructive pulmonary disease) Current Visit: Yes Qualifiers: COPD type: emphysema (6) GERD (gastroesophageal reflux disease) Current Visit: Yes Qualifiers: Esophagitis presence: without esophagitis Qualified Code(s): K21.9 - Gastro-esophageal reflux disease without esophagitis (7) Hypertension Current Visit: Yes Qualifiers: Hypertension type: essential hypertension (8) Seizure Current Visit: Yes (9) Neuropathic arthropathy Current Visit: No Initial treatment plan: Patient is discharged today and referred to [facility] for outpatient treatment
== END 2016-07-04 10:40 | disposition home or self-care (01) | DRG 772 ==
LOC: YASAS 11:04 → Y5N 15:50
PROVIDERS: ADMIT Psychiatry & Neurology Psychiatry; ATTEND Psychiatry & Neurology Psychiatry
PROC: HZ42ZZZ Group Counseling for Substance Abuse Treatment, Cognitive-Behavioral (ICD-10-PCS; principal; 2016-07-04)
DX: F10.20 Alcohol dependence, uncomplicated (principal); F25.0 Schizoaffective disorder, bipolar type; F17.210 Nicotine dependence, cigarettes, uncomplicated; J45.20 Mild intermittent asthma, uncomplicated; K21.9 Gastro-esophageal reflux disease without esophagitis; I10 Essential (primary) hypertension; G62.9 Polyneuropathy, unspecified; Z86.69 Personal history of other diseases of the nervous system and sense organs
CPT/HCPCS: 36415; 80053; 81003; 85027; 86593; 93005; 93010